=== PATIENT | female | born 1930 | race Caucasian/White ===

== ENCOUNTER 2016-04-21 08:07 | Day surgery (SDC) | payer MEDICARE ==
--- NOTE | ~2016-04-21 | EGD ---
EGD REPORT [facility] [address] [id number] NAME: LALO LOUIE : [birth year] STATUS : REG [facility]#: [id number] AGE: 85 ADM/REG DATE : 04/21/16 MR#: [id number] REPORT SERV DATE: 04/21/16 DICTATED BY: DREW PFEIFFER DATE: 04/21/16 REPORT STATUS : Draft TRANSCRIBED BY: [facility] DATE: 04/21/16 Endoscopy Center Patient Name: Lalo Louie Date of : 1930 Attending MD: DREW PFEIFFER MD Procedure Date No Time: 04/21/2016 Procedure: Colonoscopy Indications: Melena, FH of Colon Cancer - 1st degree relative, Constipation Referring MD: PABLO SOLORIO Medicines: as per anesthesia Complications: No immediate complications. Procedure: Pre-Anesthesia Assessment: - ASA Grade Assessment: III - A patient with severe systemic disease. After I obtained informed consent, the scope was passed under direct vision. Throughout the procedure, the patient's blood pressure, pulse, and oxygen saturations were monitored continuously. The [facility] [id number] was introduced through the anus and advanced to the cecum, identified by appendiceal orifice and ileocecal valve. The colonoscopy was somewhat difficult due to significant looping and a tortuous colon. The patient tolerated the procedure. The quality of the bowel preparation was adequate to identify polyps. Findings: The perianal and digital rectal examinations were normal. A few medium-mouthed diverticula were found in the sigmoid colon. Internal hemorrhoids were found during endoscopy and were mild. Impression: - Diverticulosis in the sigmoid colon. - Internal hemorrhoids. Recommendation: - Continue present medications. Procedure Code(s): --- Professional --- 96654, Colonoscopy, flexible, proximal to splenic flexure; diagnostic, with or without collection of specimen(s) by brushing or washing, with or without colon decompression (separate procedure) Diagnosis Code(s): --- Professional --- K64.8, Other hemorrhoids K57.30, Diverticulosis of large intestine without EGD REPORT [address] [place]. [address] NAME: LALO LOUIE : [birth year] STATUS : REG [facility] PAT#: [id number] AGE: 85 ADM/REG DATE : 04/21/16 MR#: [id number] REPORT SERV DATE: 04/21/16 DICTATED BY: DREW PFEIFFER. DATE: 04/21/16 REPORT STATUS : Draft TRANSCRIBED BY: [employer] DATE: 04/21/16 perforation or abscess without bleeding K92.1, Melena Z80.0, Family history of malignant neoplasm of digestive organs K59.00, Constipation, unspecified CPT copyright 2013 [employer]. All rights reserved. The codes documented in this report are preliminary and upon professional fee coder review may be revised to meet current compliance requirements. DREW PFEFIFER MD 04/21/2016 10:28 AM This report has been signed electronically. Number of Addenda: 0 Note Initiated On: 04/21/2016 9:38 AM Scope Withdrawal Time 0 hours 5 minutes 22 seconds [id number] [place] [address]
--- NOTE | ~2016-04-21 | EGD ---
EGD REPORT [facility] [address] [id number] NAME: LALO LOUIE : [birth year] STATUS : REG [facility]#: [id number] AGE: 85 ADM/REG DATE : 04/21/16 MR#: [id number] REPORT SERV DATE: 04/21/16 DICTATED BY: DREW PFEIFFER DATE: 04/21/16 REPORT STATUS : Draft TRANSCRIBED BY: [facility] DATE: 04/21/16 Endoscopy Center Patient Name: Lalo Louie Date of : 1930 Attending MD: DREW PFEIFFER MD Procedure Date No Time: 04/21/2016 Procedure: Upper GI endoscopy Indications: Dysphagia, Heartburn, Suspected esophageal reflux, Melena, Chronic cough, Personal history of peptic ulcer disease Referring MD: PABLO SOLORIO Medicines: as per anesthesia Complications: No immediate complications. Procedure: Pre-Anesthesia Assessment: - ASA Grade Assessment: III - A patient with severe systemic disease. After obtaining informed consent, the endoscope was passed under direct vision. Throughout the procedure, the patient's blood pressure, pulse, and oxygen saturations were monitored continuously. The [facility]IF H190 [id number] was introduced through the mouth, and advanced to the third part of duodenum. The upper GI endoscopy was accomplished without difficulty. The patient tolerated the procedure well. Findings: The examined esophagus was normal. The scope was withdrawn. Dilation was performed with a Seymour dilator with no resistance at 44 Fr. A small hiatus hernia was present. The examined duodenum was normal. Impression: - Normal esophagus. Dilated. - Hiatus hernia. - Normal examined duodenum. Recommendation: - Follow an antireflux regimen. - Continue present medications. Procedure Code(s): --- Professional --- 35767, Esophagogastroduodenoscopy, flexible, transoral; diagnostic, including collection of specimen(s) by brushing or washing, when performed (separate procedure) 12004, Dilation of esophagus, by unguided sound or bougie, single or multiple passes EGD REPORT [facility] [address] [facility] [place]. [address] NAME: LALO LOUIE : [birth year] STATUS : REG [facility]#: [id number] AGE: 85 ADM/REG DATE : 04/21/16 MR#: [id number] REPORT SERV DATE: 04/21/16 DICTATED BY: DREW PFEIFFER DATE: 04/21/16 REPORT STATUS : Draft TRANSCRIBED BY: [employer] DATE: 04/21/16 Diagnosis Code(s): --- Professional --- K44.9, Diaphragmatic hernia without obstruction or gangrene R13.10, Dysphagia, unspecified R12, Heartburn K92.1, Melena R05, Cough Z87.11, Personal history of peptic ulcer disease CPT copyright 2013 [employer]. All rights reserved. The codes documented in this report are preliminary and upon geothermal powerplant supervisor review may be revised to meet current compliance requirements. DREW PFEIFFER MD 04/21/2016 10:03 AM This report has been signed electronically. Number of Addenda: 0 Note Initiated On: 04/21/2016 9:40 AM Scope Withdrawal Time 0 hours 0 minutes 0 seconds [id number] [facility] [place] [address]
[~2016-04-21 08:07] MED LIST: ASAB PO; CELEBREX2 PO; DIOV160 PO; EXFORGE1 TAB PO; NORV5 PO; PRAVAC PO; PRILO PO; PROZAC PO; TYLENOL ARTHRITIS PO; VITAMIN B-121000 MC1 SL
== END 2016-04-21 23:59 | disposition home or self-care (01) ==
LOC: DMU 08:07
PROVIDERS: Internal Medicine Gastroenterology
PROC: 0DJ08ZZ Inspection of Upper Intestinal Tract, Via Natural or Artificial Opening Endoscopic (ICD-10-PCS; principal; 2016-04-21 10:00)
PROC: 0D758ZZ Dilation of Esophagus, Via Natural or Artificial Opening Endoscopic (ICD-10-PCS; 2016-04-21 10:00)
DX: K64.8 Other hemorrhoids (principal); K57.30 Diverticulosis of large intestine without perforation or abscess without bleeding; K44.9 Diaphragmatic hernia without obstruction or gangrene; I10 Essential (primary) hypertension; K21.9 Gastro-esophageal reflux disease without esophagitis; F03.90 Unspecified dementia, unspecified severity, without behavioral disturbance, psychotic disturbance, mood disturbance, and anxiety; E78.00 Pure hypercholesterolemia, unspecified; M19.90 Unspecified osteoarthritis, unspecified site; F32.9 Major depressive disorder, single episode, unspecified; Z80.0 Family history of malignant neoplasm of digestive organs; Z88.0 Allergy status to penicillin; Z88.5 Allergy status to narcotic agent; Z88.8 Allergy status to other drugs, medicaments and biological substances; Z90.49 Acquired absence of other specified parts of digestive tract; Z86.010 Personal history of colon polyps; Z90.710 Acquired absence of both cervix and uterus; Z98.890 Other specified postprocedural states